=== PATIENT | female | born 2000 | race Two or more races ===

== ENCOUNTER 2025-05-12 11:26 | Emergency (ER) | payer OTHER, SELFPAY ==
[2025-05-12 11:28] VITALS: BMI 26.3
[2025-05-12 11:39] VITALS: BP 128/86; PULSE 78; RESP 19; TEMP 37.1; O2SAT 98
--- NOTE | 2025-05-12 11:41 | XR_ITS ---
Examination: Complete OB ultrasound, less than 14 weeks, transabdominal Date and time of exam: May 04, 2025 1217 hours INDICATIONS: Vaginal bleeding and pelvic cramping beginning today Technique: Obstetrical ultrasound images less than 14 weeks performed via transabdominal imaging Findings: Uterus 8.2 cm, intrauterine gestational sac 0.8 cm corresponds to 5 weeks 4 days gestational age No pole, no cardiac activity Right ovary 6.0 cm arterial flow 43 x 3 9 mm cyst Left ovary 2.8 cm arterial flow IMPRESSION: Empty intrauterine gestational sac corresponding to 5 weeks 4 days gestational age Recommend short-term follow-up transvaginal pelvic sonography to confirm viability
[2025-05-12 12:31] LABS: Collection Type, Urine Clean Catch
[2025-05-12 12:34] LABS: Basophils # (Auto) 0.1 Thou/mm3 (0.0-0.2); Basophils % (Auto) 1 % (0-2.5); Eosinophils # (Auto) 0.0 Thou/mm3 (0.0-0.5); Eosinophils % (Auto) 0 % (0-10); Hematocrit 39.6 % (36.0-46.0); Hemoglobin 13.4 g/dL (12.0-16.0); Immature Granulocytes Auto 0.04 Thou/mm3 (0.00-0.00); Lymphocytes # (Auto) 1.6 Thou/mm3 (1.0-4.8); Lymphocytes % (Auto) 16 % (10-50); Mean Corpuscular HGB Conc 33.8 g/dl (31.0-37.0); Mean Corpuscular Hemoglobin 29.6 pg (25.0-35.0); Mean Corpuscular Volume 88 fL (80-100); Monocytes # (Auto) 0.5 Thou/mm3 (0.0-0.8); Monocytes % (Auto) 5 % (0-12); Neutrophils # (Auto) 7.7 Thou/mm3 (1.8-7.7); Neutrophils % (Auto) 77 % (37-80); Nucleated Red Blood Cell # 0.00 Thou/mm3 (0.00-0.00); Nucleated Red Blood Cell % 0 /100 WBC (0); Platelet Count 332 Thou/mm3 (140-440); RDW Standard Deviation 41.1 fL (36.4-46.3); Red Blood Count 4.52 Miln/mm3 (4.00-5.20); White Blood Count 10.0 Thou/mm3 (3.6-11.0)
[2025-05-12 12:40] LABS: Bilirubin,Urine Negative (Negative); Blood,Urine Negative (Negative); Clarity,Urine Clear (Clear/Hazy); Color,Urine Lt-Yellow (Lt Yel-Yel); Glucose, Urine Negative (Negative); Ketones,Urine 1+ (Negative); Leukocyte Esterase,Urine Positive (Negative); Nitrite,Urine Negative (Negative); PH,Urine 6.0 (5.0-7.0); Protein,Urine Negative (Neg - Trace); RBC,Urine 2 /hpf (0-3); Specific Gravity,Urine 1.023 (1.001-1.035); Squamous Epithelial Cell,Urine 7 /hpf (0-5); Urobilinogen,Urine Negative mg/dL (0.0-1.0); WBC,Urine 3 /hpf (0-5)
[2025-05-12 13:02] LABS: Alanine Aminotransferase 28 U/L (10-49); Albumin, Serum 4.4 gm/dL (3.5-5.0); Albumin/Globulin Ratio 1.6 (1.2-2.2); Alkaline Phosphatase 90 U/L (46-116); Anion Gap 9 (7-16); Aspartate Amino Transferase 31 U/L (0-34); BUN/Creatinine Ratio 10 Ratio (12-20); Bilirubin,Total 0.5 mg/dL (0.3-1.2); Blood Urea Nitrogen 6 mg/dL (9-23); Calcium 9.1 mg/dL (8.3-10.6); Calcium (Corrected) 9.1 mg/dL (8.5-10.1); Carbon Dioxide 21.8 mMol/L (20.0-31.0); Chloride 106 mMol/L (98-107); Creatinine (Component) 0.6 mg/dL (0.6-1.3); Estimated Creatinine Clearance 128.2 mL/min (>60); Globulin 2.8 gm/dL (2.3-3.5); Glucose 87 mg/dL (74-106); Osmolality,Calculated 270 (275-295); Potassium 4.0 mMol/L (3.4-5.1); Sodium 137 mMol/L (136-145); Total Protein 7.2 gm/dL (5.7-8.2); eGFR > 60 See Note
[2025-05-12 13:28] LABS: Beta HCG,Quantitative 12290 mIU/mL (<5.0)
--- NOTE | 2025-05-12 14:47 | EDNOTE_ITS ---
ED OB Contraction Preg RMI/HPI General Chief complaint: Vaginal Bleeding Stated complaint: VAGINAL BLEEDING, 6 WKS Arrival date/time: 05/12/25 11:26 RME / HPI RME / HPI Narrative: DR. CORLEY MAIN ED EVALUATION: 25-year-old female with a history of congenital heart disease status post Amplatzer implant and currently on baby aspirin presents to the Emergency Department with complaint of vaginal bleeding starting today. Patient is reportedly 6 weeks . She denies any prior medical history apart from the above and has no known drug allergies. . Denies smoking, alcohol, or drug use. Related Data Allergies Allergy/AdvReac Type Severity Reaction Status Date / Time No Known Allergies Allergy Verified 05/12/25 11:28 Review of Systems Review of Systems Systems Reviewed: All systems reviewed, normal except as documented Past Medical History Social History SMOKING STATUS: Never smoker SUBSTANCE USE: does not use ALCOHOL: Never ED Exam Narrative Physical exam: GENERAL APPEARANCE: alert and oriented x 4, well-developed, well-nourished, no acute distress VITALS: All vitals were reviewed and the pulse ox is 98% on room air, which is normal according to my interpretation. HEENT: Normocephalic, atraumatic; pupils equal, round, reactive to light; EOMI; mucous membranes pink, moist; oropharynx clear NECK: Supple LUNGS: CTABL; no wheezes, no rales, no rhonchi HEART: Regular rate, regular rhythm; normal S1, S2; no murmurs ABDOMEN: non distended; normal BS; soft, no tenderness, no guarding, no rebound; no masses, no organomegaly, no hernia BACK: no CVA tenderness EXTREMITIES: atraumatic; no edema NEUROLOGIC: awake; alert and oriented x4; cranial nerves II-XII grossly intact; no focal sensory or motor deficits PSYCHIATRIC: appropriate mood and affect SKIN: warm, dry, normal color; no rashes Course Quality Measures none Orders Category Date Time Status US OB <= 14 weeks fetus Stat Exams 05/12/25 11:41 Completed ABO/RH Type Stat Lab 05/12/25 12:13 Completed Beta HCG,Quantitative Stat Lab 05/12/25 12:13 Completed CBC Stat Lab 05/12/25 12:13 Completed CMP [Comprehensive Metabolic Panel] Stat Lab 05/12/25 12:13 Completed UA [Urinalysis] Stat Lab 05/12/25 12:18 Completed Vital Signs Vital signs: Vital Signs Temperature 98.8 F 05/12/25 11:39 Pulse Rate 78 05/12/25 11:39 Respiratory Rate 19 05/12/25 11:39 Blood Pressure 128/86 H 05/12/25 11:39 Pulse Oximetry (%) 98 05/12/25 11:39 Oxygen Delivery Method Room Air 05/12/25 11:39 Vaginal Bleeding MDM Narrative MDM Narrative: I, Alvina Solitario am scribing for and in the presence of Dr. Corley. Patient data External records reviewed:: [facility] previous records Clinical information provided by:: patient Social determinants that could affect healthcare access:: none Patient has the following chronic illnesses:: congenital heart disease status post Amplatzer implant and currently on baby aspirin How is presenting disease/condition affected by chronic disease/condition?: uneffected by Evaluation data The following diagnostics were reviewed and interpreted by me:: lab results and radiology exam(s) Lab and/or radiology exams considered but not ordered:: none Interpretation Summary: Procedure(s): US OB <= 14 weeks fetus Accession Number(s): [id number] cc: Gino Mancilla; Rene Mota MD; NO PRIMARY/FAMILY,PHYSICIAN~ Examination: Complete OB ultrasound, less than 14 weeks, transabdominal Date and time of exam: May 04, 2025 1217 hours INDICATIONS: Vaginal bleeding and pelvic cramping beginning today Technique: Obstetrical ultrasound images less than 14 weeks performed via transabdominal imaging Findings: Uterus 8.2 cm, intrauterine gestational sac 0.8 cm corresponds to 5 weeks 4 days gestational age No pole, no cardiac activity Right ovary 6.0 cm arterial flow 43 x 3 9 mm cyst Left ovary 2.8 cm arterial flow IMPRESSION: Empty intrauterine gestational sac corresponding to 5 weeks 4 days gestational age Recommend short-term follow-up transvaginal pelvic sonography to confirm viability Dictated By: Rene Mota MD Medications / Prescriptions Medications or Prescriptions considered but not ordered:: none Medication administrations:: none Consultations Consultation(s) initiated? (list below): No Diagnosis Vaginal Bleeding Differential Diagnosis: vaginal bleeding and other (threatened miscarriage, subchorionic hemorrhage, implantation bleeding) Most likely diagnosis given after review of the tests above:: Vaginal bleeding affecting early Admission Indicated Admission indicated?: not indicated Admission Request Was there a request for admission?: No Disposition Plan Disposition Plan: Discharge Discharge Attestation Discharge Attestation: The patient and all family members were given an opportunity to ask questions and understood the discharge instructions. Discharge instructions specifically effects, indications for sooner follow up or return to the emergency department, and the expected course of current diagnosis. Patient condition: Stable Discharge Plan Plan Patient Disposition: HOME (Self Care) Prescriptions/Referrals Referrals: No Primary/Family,Physician [Primary Care Provider] - In 1 week Problem List Clinical Impression: Vaginal bleeding affecting early Patient/Caregiver Discharge Instructions Education Materials: Bleeding During Early Print Language: Austrian Stand Alone Forms: Shauna Award Info., Patient Portal Info Letter
== END 2025-05-12 15:26 | disposition home or self-care (01) ==
PROVIDERS: Nurse Practitioner Family; Emergency Provider Emergency Medicine
DX: O20.9 Hemorrhage in early pregnancy, unspecified (principal); Z3A.01 Less than 8 weeks gestation of pregnancy
CPT/HCPCS: 36415; 76801; 80053; 81001; 84702; 85025; 86900; 86901; 99283

== ENCOUNTER 2025-07-14 17:48 | Emergency (ER) | payer OTHER, SELFPAY ==
[2025-07-14 17:59] VITALS: BP 114/71; PULSE 81; RESP 18; TEMP 36.6; O2SAT 97; BMI 28.5
--- NOTE | 2025-07-14 18:18 | XR_ITS ---
Examination: age complete Technique: Limited transabdominal sonographic images pelvis Indications: Patient hit at work with into the pelvis, pelvic pain Findings: Viable twin A, variable presentation Cardiac motion 153 BPM Placenta anterior grade 1 Umbilical cord insertion seen Amniotic fluid adequate spine maternal right Cervix 3.2 cm Right ovary 7.0 cm arterial flow Left ovary 3.4 cm arterial flow Estimated gestational age 15 weeks 2 days, estimated weight 116 g Viable twin B variable presentation Cardiac motion 148 BPM Placenta anterior grade 1 Umbilical cord insertion seen Amniotic fluid adequate spine maternal left Cervix 3.2 cm Right ovary 7.0 cm arterial flow Left ovary 3.4 cm arterial flow Right ovarian cyst 4.8 cm Estimated gestational age 14 weeks 6 days Estimated weight 103 g Impression: Viable twin gestations as above
--- NOTE | 2025-07-14 18:18 | PD.EDRME ---
Rapid Medical Screening Exam RME Arrival date/time: 07/14/25 17:48 This is a case of 25-year-old female who came in in the emergency room due to abdominal pain history of present illness started patient is at work when accidentally slammed by a cart on her abdomen since then patient started to have abdominal pain patient is 15 weeks 1 para 0 patient have twin Chief Complaint: OB/Uterine Contractions Time Seen by Provider: 07/14/25 18:18 Vital signs: Vital Signs Temperature 97.9 F 07/14/25 17:59 Pulse Rate 81 07/14/25 17:59 Respiratory Rate 18 07/14/25 17:59 Blood Pressure 114/71 07/14/25 17:59 Pulse Oximetry (%) 97 07/14/25 17:59 Oxygen Delivery Method Room Air 07/14/25 17:59
--- NOTE | 2025-07-14 18:53 | EDNOTE_ITS ---
ED OB Contraction Preg RMI/HPI General Chief complaint: OB/Uterine Contractions Stated complaint: HIT IN ABD W/ CART AT WORK; PREG 15WKS W/ TWINS Time Seen by Provider: 07/14/25 18:18 Arrival date/time: 07/14/25 17:48 RME / HPI RME / HPI Narrative: 07/14/25 17:48 This is a case of 25-year-old female who came in in the emergency room due to abdominal pain history of present illness started patient is at work when accidentally slammed by a cart on her abdomen since then patient started to have abdominal pain patient is 15 weeks 1 para [address] DANIEL MAIN ED EVALUATION: Doctor's First Report: Patient reports GA of approximately 15 weeks , was striked to the [facility] by a shopping cart at work within the hour prior to arrival, reported localized pain to the LLQ abdomen. No lightheadedness or dizziness, or vaginal bleeding, but reports transient cramping at the time of incident. PMH: Atrial septal defect. PSH: ASD repai 2023. Allergies: None reported. Social: Non-smoker, Non-drinker, no illicit drug abuse. Related Data Allergies Allergy/AdvReac Type Severity Reaction Status Date / Time No Known Allergies Allergy Verified 07/14/25 17:53 Review of Systems Review of Systems Systems Reviewed: All systems reviewed, normal except as documented Past Medical History Surgical History SURGICAL: Positive Cardiac Surgery Social History SMOKING STATUS: Never smoker SUBSTANCE USE: does not use ED Exam Narrative Physical exam: GEN. APPEARANCE: The patient is alert awake oriented X-3 in no distress, lying down comfortably, does not look ill/toxic. Patient has good eye contact. Patient is cooperative. VITALS: All vitals were reviewed and the pulse ox is 97% on room air which is normal according to my interpretation. HEENT: Normocephalic, atraumatic. Pupils are equal and reactive. Oral mucosa i s moist. Patent Nares NECK: Supple, nontender, no thyromegaly, no meningismus, no JVD, no step offs CHEST: Symmetrical, atraumatic, and with equal expansion , Nontender on palpation no deformity and no crepitus. CARDIOVASCULAR: Heart regular rhythm no murmur or gallop rub or extra beats. LUNGS: Clear to auscultation bilaterally with symmetrical chest rise. No laboring tachypnea or wheezing. No intercostal subcostal retraction. No rales and no rhonchi. ABDOMEN: Soft, flat. Mildly tender at LLQ extending to the external obliques, , no guarding or rebound tenderness. There are no abnormal masses palpated. Active and normal bowel sounds. EXTREMITIES: Nontender. No edema. No cyanosis. Patient is able to move all 4 extremities well, with full ROM and good CSM. SKIN: Warm and dry, no jaundice or rashes noted. MUSCULOSKELETAL: No lubar or midline bony tenderness. There is no CVA tenderness. No paraspinal muscle spasm or tenderness. NEURO: Patient is ROSS x 4, Cranial nerves II through XII grossly intact. There is no focal neurologic deficits noted. GCS is 15, PNS and [employer] appear grossly intact. PSYCHIATRIC: Patient is in normal mood and affect, cooperative, no SI or HI or hallucinations. Course Quality Measures none Orders Category Date Time Status US OB >= 14 wk twins Stat Exams 07/14/25 18:18 Completed ABO/RH Type Stat Lab 07/14/25 18:55 Completed Beta HCG,Quantitative Stat Lab 07/14/25 18:55 Completed CBC Stat Lab 07/14/25 18:55 Completed CMP [Comprehensive Metabolic Panel] Stat Lab 07/14/25 18:55 Completed Urinalysis Stat Lab 07/14/25 19:09 Completed Vital Signs Vital signs: Vital Signs Temperature 97.9 F 07/14/25 17:59 Pulse Rate 81 07/14/25 17:59 Respiratory Rate 18 07/14/25 17:59 Blood Pressure 114/71 07/14/25 17:59 Pulse Oximetry (%) 97 07/14/25 17:59 Oxygen Delivery Method Room Air 07/14/25 17:59 OB/Uterine Contractions MDM Narrative MDM Narrative:: Scribe Attestation: Sallie Rodríguez, clif scribing for and in the presence of Dr. Daniel. Provider Notation: Although this document has been carefully reviewed, there may still be some phonetic and other typographical errors. These errors are purely grammatical due to imperfections in the software program and should not be construed in any way to compromise the substance of the patient's medical care during this visit. Patient reports GA of approximately 15 weeks , was striked to the [facility] by a shopping cart at work within the hour prior to arrival, reported localized pain to the Q abdomen. No lightheadedness or dizziness, or vaginal bleeding, but reports transient cramping at the time of incident. Please see PE findings. Patient underwent OB US demonstrating twin gestation both viable with no evidence of abruption. Patient relatively asymptomatic throughout ED course. Will recommend Tylenol, cool compresses, precautionary intructions issued, return to ED if symtpoms worsen. Patient data External records reviewed:: [facility] previous records (Reviewed prior ED records from 05/12/25. Patient was seen for Vaginal bleeding affecting early .) Clinical information provided by:: patient Social determinants that could affect healthcare access:: none Patient has the following chronic illnesses:: None reported How is presenting disease/condition affected by chronic disease/condition?: no chronic disease Evaluation data The following diagnostics were reviewed and interpreted by me:: lab results and radiology exam(s) Lab and/or radiology exams considered but not ordered:: None Interpretation Summary: RADIOLOGY US: Findings: Viable twin A, variable presentation Cardiac motion 153 BPM Placenta anterior grade 1 Umbilical cord insertion seen Amniotic fluid adequate spine maternal right Cervix 3.2 cm Right ovary 7.0 cm arterial flow Left ovary 3.4 cm arterial flow Estimated gestational age 15 weeks 2 days, estimated weight 116 g Viable twin B variable presentation Cardiac motion 148 BPM Placenta anterior grade 1 Umbilical cord insertion seen Amniotic fluid adequate spine maternal left Cervix 3.2 cm Right ovary 7.0 cm arterial flow Left ovary 3.4 cm arterial flow Right ovarian cyst 4.8 cm Estimated gestational age 14 weeks 6 days Estimated weight 103 g Impression: Viable twin gestations as above Medications / Prescriptions Medications or Prescriptions considered but not ordered:: None Medication administrations:: See above if any Consultations Consultation(s) initiated? (list below): No Diagnosis OB Contractions Differential Diagnosis: premature labor, pre-eclampsia and eclampsia Most likely diagnosis given after review of the tests above:: Abdominal wall contusion Admission Indicated Admission indicated?: not indicated Explain why admission is indicated or not indicated:: Patient does not meet admission criteria Admission Request Was there a request for admission?: No Disposition Plan Disposition Plan: Discharge Discharge Attestation Discharge Attestation: The patient and all family members were given an opportunity to ask questions and understood the discharge instructions. Discharge instructions specifically effects, indications for sooner follow up or return to the emergency department, and the expected course of current diagnosis. Patient condition: Stable Discharge Plan Plan Patient Disposition: HOME (Self Care) Discharge Disposition comment: Stable Prescriptions/Referrals Referrals: No Primary/Family,Physician [Primary Care Provider] - In 1 week Problem List Clinical Impression: Abdominal wall contusion Patient/Caregiver Discharge Instructions Discharge Activity: activity as tolerated Education Materials: Bruises (Contusions) Additional Instructions: Ice compresses, Tylenol as needed for pain. Follow-up with [facility] as scheduled. Return if worsening Print Language: Togolese Stand Alone Forms: Shauna Award Info., Patient Portal Info Letter
[2025-07-14 19:17] LABS: Basophils # (Auto) 0.0 Thou/mm3 (0.0-0.2); Basophils % (Auto) 0 % (0-2.5); Eosinophils # (Auto) 0.1 Thou/mm3 (0.0-0.5); Eosinophils % (Auto) 1 % (0-10); Hematocrit 34.3 % (36.0-46.0); Hemoglobin 11.7 g/dL (12.0-16.0); Immature Granulocytes Auto 0.10 Thou/mm3 (0.00-0.00); Lymphocytes # (Auto) 2.0 Thou/mm3 (1.0-4.8); Lymphocytes % (Auto) 19 % (10-50); Mean Corpuscular HGB Conc 34.1 g/dl (31.0-37.0); Mean Corpuscular Hemoglobin 29.7 pg (25.0-35.0); Mean Corpuscular Volume 87 fL (80-100); Monocytes # (Auto) 0.6 Thou/mm3 (0.0-0.8); Monocytes % (Auto) 6 % (0-12); Neutrophils # (Auto) 7.4 Thou/mm3 (1.8-7.7); Neutrophils % (Auto) 73 % (37-80); Nucleated Red Blood Cell # 0.00 Thou/mm3 (0.00-0.00); Nucleated Red Blood Cell % 0 /100 WBC (0); Platelet Count 291 Thou/mm3 (140-440); RDW Standard Deviation 38.9 fL (36.4-46.3); Red Blood Count 3.94 Miln/mm3 (4.00-5.20); White Blood Count 10.2 Thou/mm3 (3.6-11.0)
[2025-07-14 19:18] LABS: Collection Type, Urine Voided; RBC,Urine 0 /hpf (0-3)
[2025-07-14 19:41] LABS: Alanine Aminotransferase 49 U/L (10-49); Albumin, Serum 4.0 gm/dL (3.5-5.0); Albumin/Globulin Ratio 1.5 (1.2-2.2); Alkaline Phosphatase 100 U/L (46-116); Anion Gap 8 (7-16); Aspartate Amino Transferase 34 U/L (0-34); BUN/Creatinine Ratio 10 Ratio (12-20); Bilirubin,Total 0.4 mg/dL (0.3-1.2); Blood Urea Nitrogen < 5 mg/dL (9-23); Calcium 9.2 mg/dL (8.3-10.6); Calcium (Corrected) 9.2 mg/dL (8.5-10.1); Carbon Dioxide 23.1 mMol/L (20.0-31.0); Chloride 108 mMol/L (98-107); Creatinine (Component) 0.5 mg/dL (0.6-1.3); Estimated Creatinine Clearance 159.9 mL/min (>60); Globulin 2.6 gm/dL (2.3-3.5); Glucose 83 mg/dL (74-106); Osmolality,Calculated 273 (275-295); Potassium 3.8 mMol/L (3.4-5.1); Sodium 139 mMol/L (136-145); Total Protein 6.6 gm/dL (5.7-8.2); eGFR > 60 See Note
[2025-07-14 19:57] LABS: Amorphous Crystals,Urine Present (Absent); Bacteria,Urine Rare; Bilirubin,Urine Negative (Negative); Blood,Urine Negative (Negative); Clarity,Urine Turbid (Clear/Hazy); Color,Urine Yellow (Lt Yel-Yel); Glucose, Urine Negative (Negative); Ketones,Urine Negative (Negative); Leukocyte Esterase,Urine Negative (Negative); Nitrite,Urine Negative (Negative); PH,Urine 7.0 (5.0-7.0); Protein,Urine Negative (Neg - Trace); Specific Gravity,Urine 1.021 (1.001-1.035); Squamous Epithelial Cell,Urine 4 /hpf (0-5); Urobilinogen,Urine 2.0 mg/dL (0.0-1.0); WBC,Urine 1 /hpf (0-5)
[2025-07-14 21:42] VITALS: RESP 16
== END 2025-07-14 21:42 | disposition home or self-care (01) ==
PROVIDERS: Nurse Practitioner Family; Emergency Provider Emergency Medicine
DX: O9A.212 Injury, poisoning and certain other consequences of external causes complicating pregnancy, second trimester (principal); S30.1XXA Contusion of abdominal wall, initial encounter; O30.002 Twin pregnancy, unspecified number of placenta and unspecified number of amniotic sacs, second trimester; W20.8XXA Other cause of strike by thrown, projected or falling object, initial encounter; Y99.0 Civilian activity done for income or pay; Z3A.15 15 weeks gestation of pregnancy
CPT/HCPCS: 36415; 76805; 76810; 80053; 81001; 84702; 85025; 86900; 86901; 99283